=== PATIENT | female | born 1980 | race Caucasian/White ===

== ENCOUNTER → 2020-11-08 | Outpatient (CLI) | payer OTHER ==
--- NOTE | 2020-11-08 08:59 | CT ---
EXAMINATION TYPE: CT sinus wo con DATE OF EXAM: 11/08/2020 COMPARISON: None HISTORY: 40-year-old female J32.9, M2 6.60 Chronic sinusitis, TMJ syndrome CT DLP: 641.6 mGycm Automated exposure control for dose reduction was used. TECHNIQUE: Noncontrast axial views of the paranasal sinuses were obtained. Coronal reconstructions pe rformed. FINDINGS: PARANASAL SINUSES: Partial opacification posterior left ethmoid air cells. Trace mucosal thickening near the bilateral maxillary infundibulum. Frontal and sinuses are well pneumatized. There is no air-fluid level. Reactive cecy- osteogenesis is not seen. There is no destruction of the osseous rodriguez of the paranasal sinuses. THE NASAL CAVITY: The osteomeatal complexes are patent. There is leftward nasal septal deviation. The imaged brain and orbits are normal in appearance. Mastoid air cells and middle ear cavities are well pneumatized. Trace fluid within the inferior left mastoid air cells of questionable clinical significance. There is early degenerative change at the left TMJ with some subchondral cystic change in the [place] condyle. Refer to coronal image 40. Reformatted images confirm above findings. IMPRESSION: 1. Trace mucosal thickening near the bilateral maxillary infundibula and mild opacification posterior left ethmoid air cells. 2. Leftward nasal septal deviation. 3. Early degenerative change at the left TMJ.
== END | disposition home or self-care (01) ==
LOC: RADCTMAIN 07:18
PROVIDERS: ATTEND Otolaryngology
DX: J34.2 Deviated nasal septum (principal)
CPT/HCPCS: 70486